=== PATIENT | male | born 1975 | race Caucasian/White ===

== ENCOUNTER 2019-08-08 15:23 | Day surgery (SDC) | payer OTHER ==
[~2019-08-08] VITALS: Ht 175.3 cm; Wt 158.8 kg
[2019-08-08] MEDS ORDERED: ceFAZolin 2 GM/D5W 50 ML IV BAG (J0690 PER 500MG) As Ordered ONE (15:48)
[2019-08-08] MEDS ORDERED: ceFAZolin SOD 2 GM in IV 1 EA IV ONE (17:15)
[2019-08-08] MEDS ORDERED: PROPOFOL 200 MG/20 ML VIAL As Ordered ONE (18:04)
[2019-08-08] MEDS ORDERED: ROCURONIUM BROMIDE 50 MG/5 ML VIAL As Ordered ONE (18:05)
[2019-08-08] MEDS ORDERED: LIDOCAINE 2% INJ 100 MG/5 ML SDV (FOR ANES.) As Ordered ONE (18:05)
[2019-08-08] MEDS ORDERED: ONDANSETRON 4MG/2ML VIAL (J2405) As Ordered ONE (18:05)
[2019-08-08] MEDS ORDERED: MIDAZOLAM INJ 2 MG/2 ML VIAL (J2250) As Ordered ONE (18:06)
[2019-08-08] MEDS ORDERED: fentaNYL 250 MCG/5 ML INJECTION (J3010) As Ordered ONE (18:06)
[2019-08-08] MEDS ORDERED: dexameTHASONE 4 MG/ML 1ML VIAL (J1100) As Ordered ONE (18:06)
[2019-08-08] MEDS ORDERED: BUPIVACAINE HCL 0.5% 30 ML VIAL As Ordered ONE (18:59)
[2019-08-08] MEDS ORDERED: LR 1,000 ML IV ONE (19:30)
[2019-08-08] MEDS ORDERED: LABETALOL HCL 100 MG/20 ML VIAL As Ordered ONE (20:17)
[2019-08-08] MEDS ORDERED: ACETAMINOPHEN 1000MG 100ML IV BTL (OFIRMEV) (J0131 PER 10MG) As Ordered ONE (20:29)
[2019-08-08] MEDS ORDERED: SUGAMMADEX SODIUM 500 MG/5 ML VIAL (BRIDION) As Ordered ONE (20:31)
[2019-08-08] MEDS ORDERED: fentaNYL 100 MCG/2 ML INJECTION (J3010) IV PRN (22:15)
[2019-08-08] MEDS ORDERED: ONDANSETRON 4MG/2ML VIAL (J2405) IV PRN (22:15)
[2019-08-08] MEDS ORDERED: PERCOCET 5MG/325MG TAB PO PRN (22:15)
[2019-08-08] MEDS ORDERED: MORPHINE 10 MG/ML 1ML VIAL (J2270) IV PRN (22:15)
[2019-08-08] MEDS ORDERED: LR 1,000 ML IV SCH ×2 (22:15→23:00)
[2019-08-08] MEDS ORDERED: ACETAMINOPHEN 500 MG TAB PO PRN (23:00)
[2019-08-08] MEDS ORDERED: oxyCODONE 5MG TAB PO PRN ×2 (23:00)
[2019-08-08 23:45] VITALS: BP 160/90
[2019-08-09 00:15] VITALS: BP 154/87
[2019-08-09 01:15] VITALS: BP 166/80
[2019-08-09 02:15] VITALS: BP 155/74
[2019-08-09 03:15] VITALS: BP 151/87
[2019-08-09 06:00] VITALS: BP 135/85
--- NOTE | 2019-08-09 07:10 | RO ---
DATE OF PROCEDURE: 08/08/2019 PREOPERATIVE DIAGNOSIS: Right Maisonneuve fracture. POSTOPERATIVE DIAGNOSIS: Right Maisonneuve fracture. PROCEDURE: Open reduction internal fixation right ankle. SURGEON: Mandy Mcclure MD EMPLOYMENT PROGRAM REPRESENTATIVE: None. ANESTHESIA: General endotracheal. ESTIMATED BLOOD LOSS: 10 mL. COMPLICATIONS: None. CONDITION: Stable in recovery. INDICATIONS: Collin Gracia is a 43-year-old male who is status post mechanical fall off a tractor. He sustained a right Maisonneuve fracture. There is significant displacement at the ankle mortise. Risks and benefits of surgery were discussed with the patient in detail and include, but are not limited to infection, damage to nerves and blood vessels, continued pain and stiffness, need for additional procedures. Informed consent was obtained in the office. DESCRIPTION OF PROCEDURE: The patient was met in the preoperative holding area where his right lower extremity was marked as the correct operative side. He was taken to the operating room and placed in the supine position on the operating room table. Bony prominences were well padded. Antibiotics were given within 60 minutes prior to incision. A well-padded tourniquet was placed on the upper thigh. Chlorhexidine scrub was performed of the right lower extremity. It was then prepped and draped in the normal sterile fashion. An official time out was held where the correct patient, operative side and operative procedure were verified. The right leg was exsanguinated with an Esmarch tourniquet and the tourniquet was inflated to 275 mmHg. It was up for 48 minutes. An incision was made over the distal fibula just proximal to the tibiotalar joint. Blunt dissection to the fibula was performed. A small stab incision was also made medially over the tibia. A snap was used to dissect the bone. A large periarticular clamp was used to reduce the ankle mortise which was significantly widened. Reduction was confirmed on AP, lateral and a mortise view. It was also confirmed with radiographs of the patient's contralateral side to ensure appropriate reduction of the fibula. When I was satisfied with this, a 0.062 wire was placed across the fibula and tibia. I then placed two 4.0 mm fully threaded cortical screws just proximal to the tibiotalar joint. Following removal of the clamp and K-wire, there was satisfactory fixation with the two screws. Alignment was maintained in AP, lateral and mortise views. Final x-rays were performed. The ankle was stable to external rotation stress testing and Cotton test. Irrigation was performed. Soft tissues were closed using #2-0 Vicryl and the skin was closed using #3-0 nylon. A sterile dressing was applied followed by a well padded splint. The patient was extubated and transferred to the recovery room in stable condition. PLAN: The patient will be nonweightbearing in the right lower extremity for 10-12 weeks. He will be on aspirin for deep vein thrombosis (DVT) prophylaxis. I will see him back in a week for a wound check and cast placement. CHRISTA
[2019-08-09] MEDS ORDERED: ACET-683 PO (07:21)
[2019-08-09] MEDS ORDERED: ASPI81TA85 PO (07:21)
[2019-08-09] MEDS ORDERED: OXYC-517 PO (07:21)
[2019-08-09] MEDS ORDERED: ASPIRIN 81 MG ENTERIC TAB PO SCH (09:00)
--- NOTE | 2019-08-09 09:17 | REP ---
Right ankle: 12 views. History: Right ankle fracture. Intraoperative imaging. Fluoroscopy time reported as 1 minute 26 seconds. Findings: A sequence of 12 last image hold fluoroscopically obtained spot radiographs the ankle document metallic screw placement in the lateral aspect of the ankle. Electronically Signed by Edgar Argueta MD 08/09/2019 09:35 A
== END 2019-08-09 08:58 | disposition home or self-care (01) ==
LOC: M SDC 15:23 → M MSPAV 23:34 → M SDC 08-09 08:58
PROVIDERS: ATTEND Orthopaedic Surgery
DX: S82.861A Displaced Maisonneuve's fracture of right leg, initial encounter for closed fracture (principal); V84.5XXA Driver of special agricultural vehicle injured in nontraffic accident, initial encounter; Y93.9 Activity, unspecified; Y92.9 Unspecified place or not applicable; Y99.0 Civilian activity done for income or pay; I10 Essential (primary) hypertension; E66.01 Morbid (severe) obesity due to excess calories
CPT/HCPCS: 27814; 76000; 97161; C1713; J0131; J0690; J1100; J2250; J2405; J3010

== ENCOUNTER 2019-11-22 07:33 | Day surgery (SDC) | payer OTHER ==
[~2019-11-22] VITALS: Ht 175.3 cm; Wt 156.4 kg
[~2019-11-22 07:33] MED LIST: ACET-683 PO; ASPI81TA85 PO; LIDOCAINE 1% MDV 20ML VIAL SQ PRN; LR 1,000 ML IV ONE; MIDAZOLAM INJ 2 MG/2 ML VIAL (J2250) As Ordered ONE; OXYC-517 PO; fentaNYL 100 MCG/2 ML INJECTION (J3010) As Ordered ONE
[2019-11-22] MEDS ORDERED: LISI10TA4 PO (08:11)
[2019-11-22] MEDS ORDERED: ceFAZolin SOD 2 GM in IV 1 EA IV ONE (08:15)
[2019-11-22] MEDS ORDERED: BUPIVACAINE HCL 0.5% 30 ML VIAL As Ordered ONE (11:03)
[2019-11-22] MEDS ORDERED: LIDOCAINE 1% SDV INJ 30 ML VIAL As Ordered ONE (11:20)
[2019-11-22] MEDS ORDERED: ACETAMINOPHEN 1000MG 100ML IV BTL (OFIRMEV) (J0131 PER 10MG) As Ordered ONE (11:38)
[2019-11-22] MEDS ORDERED: ONDANSETRON 4MG/2ML VIAL (J2405) As Ordered ONE (11:45)
[2019-11-22] MEDS ORDERED: propofoL 200 MG/20 ML VIAL As Ordered ONE (11:53)
--- NOTE | 2019-11-22 12:29 | REP ---
Clinical: Hardware removal. Technique: Intraoperative fluoroscopic imaging using portable C-arm technique. Findings: Initial images demonstrate intact and fractured stabilizing screws through the distal tibia and fibula. Final image demonstrates removal of the intact and proximal fractured portion of the screws with a residual portion of screw remaining imbedded in the tibial metaphysis. Total fluoroscopic time 27 seconds. Impression: Removal of orthopedic hardware as noted above. Electronically Signed by Law Betancur MD 11/22/2019 12:20 P
[2019-11-22 13:08] VITALS: BP 129/75
--- NOTE | 2019-11-23 09:18 | RO ---
DATE OF PROCEDURE: 11/22/2019 PREPROCEDURE DIAGNOSIS: Right Maisonneuve fracture status post ORIF (open reduction internal fixation). POSTPROCEDURE DIAGNOSIS: Right Maisonneuve fracture status post ORIF (open reduction internal fixation). PROCEDURE: Right ankle removal of hardware. SURGEON: Mandy Mcclure MD PRINCIPAL JAVA SOFTWARE ENGINEER: KATINA Jimenez ANESTHESIA: Local with 1% lidocaine plus monitored anesthesia care (MAC) sedation. ESTIMATED BLOOD LOSS: 10 mL. COMPLICATIONS: None. CONDITION: Stable to recovery. INDICATIONS: Collin Gracia is a 44-year-old male who is status post ORIF (open reduction internal fixation) of a Maisonneuve fracture. He presents for hardware removal. Risks and benefits of surgery were discussed with patient in detail and include, but are not limited to infection, damage to surrounding nerves and blood vessels, continued pain and stiffness, need for additional procedures. Informed consent was obtained in the office. DESCRIPTION OF PROCEDURE: The patient was met in the preoperative holding area where his right lower extremity was marked as the correct operative side. He was then taken to the operating room and placed in the supine position on the operating room table. Bony prominences were well padded. Right lower extremity was prepped and draped in a normal sterile fashion. He received antibiotics within 60 minutes prior to incision. An official time-out was held where the correct patient, operative site, and operative procedure were identified. Following this the patient's prior scar was utilized for incision. There was careful dissection to the level of the fibula. Screws were identified using fluoroscopy as there was already abundant scar tissue over the screws. They were removed with ease. The more distal screw had broken in the time between out last set of x-rays in office and the operating room (OR). Patient did later admit he had a fall. The broken aspect of the screw was well seated in the tibia and this was left in place. Following hardware removal x-rays were performed in AP, lateral, and mortise and found to be satisfactory. There was very slight widening with external rotation stress test, but this did not appear to be significant. Copious irrigation was performed. Skin was closed using 3-0 Vicryl and 3-0 nylon. Patient was extubated and transferred to the recovery room in stable condition. Of note patient had been anesthetized with approximately 22 mL of 1% lidocaine prior to incision and an Esmarch had been used to exsanguinate the leg and tied off at the calf as a tourniquet. PLAN: The patient will be weightbearing if tolerated in the boot. I will see him in a week for x-rays and possible suture removal.
== END 2019-11-22 13:09 | disposition home or self-care (01) ==
LOC: M SDC 07:33
PROVIDERS: ATTEND Orthopaedic Surgery
DX: T84.84XA Pain due to internal orthopedic prosthetic devices, implants and grafts, initial encounter (principal); M25.571 Pain in right ankle and joints of right foot; I10 Essential (primary) hypertension; E66.01 Morbid (severe) obesity due to excess calories; Z79.899 Other long term (current) drug therapy; Y79.2 Prosthetic and other implants, materials and accessory orthopedic devices associated with adverse incidents; Y84.8 Other medical procedures as the cause of abnormal reaction of the patient, or of later complication, without mention of misadventure at the time of the procedure
CPT/HCPCS: 20680; 76000; J0131; J0690; J2250; J2405; J3010